=== PATIENT | female | born 1980 | race Caucasian/White ===

== ENCOUNTER 2016-09-01 23:53 | Emergency (ER) | payer MEDICARE, OTHER ==
--- NOTE | ~2016-09-01 | CR282 ---
[facility] A Service [facility] RADIOLOGY TEXT RESULTS PATIENT: MYNOR SAWYER LOCATION: SED : 84 UNIT #: [id number] AGE: [address]: Wojciech Rosen MD SEX: F ORDER DR: [id number] [place] [id number] E MR#: [id number] Acc #: [id number] NAME: MYNOR SAWYER. : 1980 SEX: F STUDY DATE/TIME: 09/02/2016 0:03 UNIT: SED ROOM: STUDY DESCRIPTION: CR Wrist Min 3 View Rt Attending Physician: Wojciech Rosen M.D. Ordering Physician: Wojciech Rosen M.D. MEDICAL IMAGING REPORT This report is preliminary unless electronic signature is present. EXAM Right wrist, 3 views. COMPARISON None INDICATION 36-year-old female with right wrist pain after slipping and falling at [facility]. FINDINGS There is mild osteophyte formation at the first carpometacarpal joint. Bones are anatomically aligned. No evidence of acute fracture. Apparent exophytic soft tissue density seen in multiple locations of the hand. IMPRESSION No evidence of acute fracture or dislocation of the right wrist. There are multiple exophytic soft tissue density lesions seen at the right hand with multiple soft tissue density lesions seen at the neck as well. These findings are nonspecific and may reflect neurofibromatosis or possibly other benign skin lesions. Clinical correlation recommended. Dictated by... hSen Landeros M.D. THIS IS AN ELECTRONICALLY VERIFIED REPORT Shen Landeros M.D. at 09/04/2016 8:50 AM SAMEERA/iris TD: 09/02/2016 09:18 [facility] A Service [facility] RADIOLOGY TEXT RESULTS PATIENT: MYNOR SAWYER LOCATION: SED : 82 UNIT #: [id number] AGE: [address]: Wojciech Rosen MD SEX: F ORDER DR: BIA #: [id number] MEDICAL IMAGING REPORT
--- NOTE | ~2016-09-01 | CR58 ---
[facility]. [facility] A Service of [facility] RADIOLOGY TEXT RESULTS PATIENT: MYNOR SAWYER [place] [facility] [place] #: [id number] AGE: [address]: Wojciech Rosen MD SEX: F ORDER DR: [id number] [address] [address] [id number] E MR#: [id number] Acc #: [id number] NAME: MYNOR SAWYER. : 1980 SEX: F STUDY DATE/TIME: 09/02/2016 0:03 UNIT: SED ROOM: STUDY DESCRIPTION: CR Cervical Spine 2 or 3 Views Attending Physician: Wojciech Rosen M.D. Ordering Physician: Wojciech Rosen M.D. MEDICAL IMAGING REPORT This report is preliminary unless electronic signature is present. EXAM Cervical spine, 4 views COMPARISON None INDICATIONS 36-year-old female with right-sided neck pain after slipping and falling tonight. FINDINGS Apparent nodular densities overlap the soft tissues of the neck, possibly artifact and external to the patient, or reflective of primary soft tissue lesions. The largest of these measures up to 1.4 cm. There is mild reversal of the normal curvature of the cervical spine which is otherwise anatomically aligned. The odontoid is not well seen on the Fuchs or open mouth views. Odontoid appears grossly intact on lateral view. IMPRESSION 1. Limited evaluation of the odontoid on frontal views. Odontoid appears intact on the lateral view and no evidence of acute fracture is seen on the current exam. Clinical correlation is recommended and if high suspicion CT can be performed for further characterization. 2. Multiple rounded opacities overlying the soft tissues of the posterior neck, possibly representing sebaceous cysts or primary skin lesions. Soft tissue neoplasms are thought less likely. Clinical correlation recommended. The largest of these appears to be at the posterior right lateral aspect of the lower neck measuring up to 1.7 cm. If indicated nonemergent CT of the soft tissues of the neck with IV contrast could be performed for further characterization. [facility] A Service [facility] RADIOLOGY TEXT RESULTS PATIENT: MYNOR SAWYER LOCATION: SED : 84 UNIT #: [id number] AGE: [address]: Wojciech Rosen MD SEX: F ORDER DR: Dictated by... Shen Landeros M.D. THIS IS AN ELECTRONICALLY VERIFIED REPORT Shen Landeros M.D. at 09/05/2016 7:40 PM BLM/enid TD: 09/02/2016 09:02 JOB #: [id number] MEDICAL IMAGING REPORT
[~2016-09-01 23:53] MED LIST: NO MEDICATIONS
== END 2016-09-02 01:42 | disposition home or self-care (01) ==
LOC: SED 23:53
DX: S63.501A Unspecified sprain of right wrist, initial encounter (principal); S16.1XXA Strain of muscle, fascia and tendon at neck level, initial encounter; W01.0XXA Fall on same level from slipping, tripping and stumbling without subsequent striking against object, initial encounter; Y92.9 Unspecified place or not applicable
CPT/HCPCS: 29125; 72040; 73110; 99283